=== PATIENT | female | born 1940 ===

== ENCOUNTER 2023-07-18 00:32 | Emergency (ER) | payer MEDICARE, SELFPAY ==
[2023-07-18] VITALS (15 sets, daily range): BP systolic 109–143; BP diastolic 56–73; PULSE 86–101; RESP 18–24; TEMP 36.4; O2SAT 93–95; BMI 23.1
--- NOTE | 2023-07-18 00:38 | DI.RAD.S_ITS ---
PROCEDURE: XR CHEST 1V INDICATIONS: L CHEST PAIN TECHNIQUE: One view of the chest was acquired. COMPARISON: [facility], CR, XR CHEST 1 VIEW, 07/16/2022, 9:20. [facility], CT, CT CHEST WITH CONTRAST, 10/08/2022, 14:31. FINDINGS: Surgical changes and devices: A pacer device is seen. The leads are seen in stable positions. A percutaneously placed aortic valve replacement can be seen. Rim calcified mammoplasty implants can be seen. Lungs and pleura: An incomplete inspiratory result is noted, causing a crowded appearance to the lung markings. No focal infiltrates are seen. No pneumothorax or significant pleural effusions are seen. There is elevation of the right hemidiaphragm, which is stable. Mediastinum: Mediastinal contours appear normal. Heart size is normal. Atherosclerotic calcification of the aortic arch is noted. Bones and chest wall: No suspicious bony lesions. Age-appropriate bony degenerative changes are seen. Overlying soft tissues appear unremarkable. IMPRESSION: No tyron acute abnormality is seen. Low lung volumes can be seen, with persistent elevation of the right hemidiaphragm. Postoperative and degenerative changes are seen. Dictated by: Ari Whalen M.D. on 07/18/2023 at 0:09 Approved by: Ari Whalen M.D. on 07/18/2023 at 0:11
[2023-07-18 00:48] LABS: Add Manual Diff / Slide Review NO; Basophils Absolute Auto 100 /uL (0-100); Basophils Percent Auto 1.2 % (0-2); Eosinophils Absolute Auto 300 /uL (0-450); Eosinophils Percent Auto 2.6 % (2-4); Hematocrit 39.8 % (36-46); Hemoglobin 12.9 g/dL (12.0-16.0); Lymphocytes Absolute Auto 3200 /uL (1100-4500); Lymphocytes Percent Auto 25.4 % (25-40); Mean Corpuscular HGB Conc 32.5 % (30-36); Mean Corpuscular Hemoglobin 28.1 PG (26-34); Mean Corpuscular Volume 86.6 fL (80-100); Monocytes Absolute Auto 700 /uL (0-900); Monocytes Percent Auto 5.4 % (3-14); Neutrophils Absolute Auto 8300 /uL (1500-7000); Neutrophils Percent Auto 65.4 % (50-75); Platelet Count 301 X10^3/uL (150-400); Red Blood Cell Count 4.59 X10^6/uL (4.0-5.2); Red Cell Distribution Width 14.5 % (11.6-14.8); White Blood Cell Count 12.7 X10^3/uL (4.5-11.0)
[2023-07-18 00:51] LABS: INR 1.1 (0.9-1.3); Prothrombin Time 12.2 SECONDS (9.4-12.5)
--- NOTE | 2023-07-18 00:51 | ED.CHESTPAIN ---
HPI - Chest Pain General Chief Complaint: Chest Pain Stated Complaint: chest pain Time Seen by Provider: 07/18/23 00:33 Source: patient and EMS Mode of arrival: EMS Limitations: no limitations History of Present Illness HPI narrative: 83-year-old female with history of mild dementia presents from [facility] for chest pain. Patient states that she thinks that she woke up with the pain. It was left-sided, she can not characterize the pain. Can not identify if anything makes it better or worse. Patient given aspirin by paramedics Related Data Allergies Allergy/AdvReac Type Severity Reaction Status Date / Time Penicillins Allergy Verified 07/18/23 00:38 Review of Systems Review of Systems Narrative: Negative except as noted above Patient History Social History Smoking Status: Never smoker Smoking Status: Never smoker alcohol intake frequency: other Substance Use Type: does not use Exam Initial Vital Signs Initial Vital Signs: Vital Signs Respiratory Rate 22 07/18/23 00:37 Pulse Oximetry 94 07/18/23 00:37 Oxygen Delivery Method Room Air 07/18/23 00:37 Const: Awake, alert, debilitated, frail, no acute distress Cardiac: regular rate, regular rhythm RESP: unlabored, clear bilaterally, no wheezing GI: Soft, nontender, nondistended Skin: Warm, Dry, intact, no rashes Neuro: AO x2, CN II-XII grossly intact, moves all extremities Course Orders Ordered: ED Orders 07/18/23 00:31 BNP [NT-proBNP (BNP-Adult 18+)] Stat CBC Auto Diff [Complete Blood Count AUTO DIFF] Stat CMP [Comprehensive Metabolic Panel] Stat MAG [Magnesium] Stat PT [Prothrombin Time INR] Stat Troponin & CK Cardiac Panel Stat 07/18/23 00:38 Chest [XR chest 1V] Stat EKG-12 Lead Stat 07/18/23 02:31 Trop I [Troponin I] Stat Vital Signs Vital signs: Vital Signs - 8 hr 07/18/23 00:37 07/18/23 00:39 07/18/23 01:00 Temperature 97.5 F L Pulse Rate 101 H 100 H Respiratory Rate 22 18 22 Blood Pressure 118/65 Pulse Oximetry 94 93 93 Oxygen Delivery Method Room Air Room Air Room Air 07/18/23 01:00 07/18/23 01:30 07/18/23 01:30 Temperature Pulse Rate 96 H Respiratory Rate 22 Blood Pressure 109/61 115/59 L Pulse Oximetry 93 Oxygen Delivery Method Room Air 07/18/23 02:00 07/18/23 02:00 07/18/23 02:30 Temperature Pulse Rate 92 H 92 H Respiratory Rate 21 24 Blood Pressure 118/58 L Pulse Oximetry 93 93 Oxygen Delivery Method Room Air Room Air 07/18/23 02:30 Temperature Pulse Rate Respiratory Rate Blood Pressure 128/67 Pulse Oximetry Oxygen Delivery Method MDM - Chest Pain Differential Diagnosis Differential diagnosis: Likely fracture of rib, pneumothorax and stable angina Lab Data 07/18/23 00:31 07/18/23 00:31 Labs: Lab Results 07/18/23 07/18/23 Range/Units 00:31 02:31 WBC 12.7 H (4.5-11.0) X10^3/uL RBC 4.59 (4.0-5.2) X10^6/uL Hgb 12.9 (12.0-16.0) g/dL Hct 39.8 (36-46) % MCV 86.6 (80-100) fL MCH 28.1 (26-34) PG MCHC 32.5 (30-36) % RDW 14.5 (11.6-14.8) % Plt Count 301 (150-400) X10^3/uL Neut % (Auto) 65.4 (50-75) % Lymph % (Auto) 25.4 (25-40) % [place] % (Auto) 5.4 (3-14) % Eos % (Auto) 2.6 (2-4) % Baso % (Auto) 1.2 (0-2) % Neut # (Auto) 8300 H (6335-8845) /uL Lymph # (Auto) 3200 (3555-3004) /uL [place] # (Auto) 700 (0-900) /uL Eos # (Auto) 300 (0-450) /uL Baso # (Auto) 100 (0-100) /uL PT 12.2 (9.4-12.5) SECONDS INR 1.1 (0.9-1.3) Sodium 139 (137-145) mmol/L Potassium 4.2 (3.4-5.1) mmol/L Chloride 105 (98-107) mmol/L Carbon Dioxide 28 (22-32) mmol/L BUN 30 H (7-17) mg/dL Creatinine 0.85 (0.52-1.04) mg/dL Estimated GFR > 60 (>60) mL/min BUN/Creatinine Ratio 35.3 H (6-22) Glucose 119 H (80-110) mg/dL Calcium 9.5 (8.4-10.2) mg/dL Magnesium 1.7 (1.6-2.3) mg/dL Total Bilirubin 0.5 (0.2-1.3) mg/dL AST 24 (14-36) IU/L ALT 13 (<35) IU/L Alkaline Phosphatase 127 H (38-126) U/L Total Creatine Kinase 40 (30-135) U/L Troponin I < 0.012 < 0.012 (0.01-0.034) ng/mL NT-Pro-B Natriuret Pep 584 H (<450) pg/mL Total Protein 7.5 (6.3-8.2) g/dL Albumin 4.0 (3.5-5.0) g/dL Globulin 3.5 (1.7-4.1) g/dL Albumin/Globulin Ratio 1.1 (1.0-2.8) Imaging Data Chest x-ray: Radiologist's Impression: PROCEDURE: XR CHEST 1V INDICATIONS: L CHEST PAIN TECHNIQUE: One view of the chest was acquired. COMPARISON: [facility], CR, XR CHEST 1 VIEW, 07/16/2022, 9:20. [facility], CT, CT CHEST WITH CONTRAST, 10/08/2022, 14:31. FINDINGS: Surgical changes and devices: A pacer device is seen. The leads are seen in stable positions. A percutaneously placed aortic valve replacement can be seen. Rim calcified mammoplasty implants can be seen. Lungs and pleura: An incomplete inspiratory result is noted, causing a crowded appearance to the lung markings. No focal infiltrates are seen. No pneumothorax or significant pleural effusions are seen. There is elevation of the right hemidiaphragm, which is stable. Mediastinum: Mediastinal contours appear normal. Heart size is normal. Atherosclerotic calcification of the aortic arch is noted. Bones and chest wall: No suspicious bony lesions. Age-appropriate bony degenerative changes are seen. Overlying soft tissues appear unremarkable. IMPRESSION: No tyron acute abnormality is seen. Low lung volumes can be seen, with persistent elevation of the right hemidiaphragm. Postoperative and degenerative changes are seen. Dictated by: Ari Whalen M.D. on 07/18/2023 at 0:09 Approved by: Ari Whalen M.D. on 07/18/2023 at 0:11 MDM Narrative Medical decision making narrative: Chest pain of uncertain chronicity. Patient is somewhat poor historian. She was in no acute distress but is very anxious about what could be causing her chest pain. EKG is normal sinus rhythm without obvious concerning ischemic findings. Laboratory work is reviewed, no significant acute abnormalities. Troponins are undetectable x2, electrolytes are within normal limits, normal hemoglobin. Patient counseled on her lab and imaging findings, uncertain cause of pain but unlikely to be ACS at this time. Patient counseled to follow up with primary care physician and Cardiology if she continues to experience pain. Cardiology referral provided. Discharge Plan Departure Patient Disposition: Home Clinical Impression: Chest pain Instructions: DI for Chest Pain Activity Restrictions/Additional Instructions: Your EKG and lab work was normal today. I do not know the cause of your chest pain. Please follow up with your primary care physician and a university controller. Referrals: Tiffany Stoner DO [Physician] - Stand Alone Forms: Patient Portal/API
[2023-07-18 00:56] LABS: Alanine Aminotransferase 13 IU/L (<35); Albumin Globulin Ratio 1.1 (1.0-2.8); Alkaline Phosphatase 127 U/L (38-126); Aspartate Aminotransferase 24 IU/L (14-36); BUN Creatinine Ratio 35.3 (6-22); Bilirubin Total 0.5 mg/dL (0.2-1.3); Blood Urea Nitrogen 30 mg/dL (7-17); Calcium 9.5 mg/dL (8.4-10.2); Carbon Dioxide 28 mmol/L (22-32); Chloride 105 mmol/L (98-107); Creatine Kinase 40 U/L (30-135); Estimated Glomerular Filt Rate > 60 mL/min (>60); Globulin 3.5 g/dL (1.7-4.1); Glucose 119 mg/dL (80-110); HEMOLYSIS 16 (0-50); Magnesium 1.7 mg/dL (1.6-2.3); Potassium 4.2 mmol/L (3.4-5.1); Sodium 139 mmol/L (137-145); Total Protein 7.5 g/dL (6.3-8.2)
[2023-07-18 01:08] LABS: NT-proBNP (BNP-Adult 18+) 584 pg/mL (<450); Troponin I < 0.012 ng/mL (0.01-0.034)
--- NOTE | 2023-07-18 01:30 | PC.NURSE ---
Pt is oriented to location but does not remember that she is at a short term facility at this point. But was able to tell me upon arrival. Pt is often forgetful and asks the same questions that have been answered prior.
[2023-07-18 03:07] LABS: Troponin I < 0.012 ng/mL (0.01-0.034)
--- NOTE | 2023-07-18 04:06 | PC.NURSE ---
Pt is a resident of [facility]. I asked the pt if she had any way home back to the facility and she told me that she doesn't and that she is unable to ambulate well. FERNANDO Mortensen told me to contact [facility] to schedule and transport back to her facility. After facilitating the transport setup, I notified the pt and gave her an update on when they would be here to pickup and take her back. After updating the pt, I tried to call her facility at [phone] to give them an ETA on when their resident will be arriving back and got no answer and no way for me to leave a voicemail. I tried again several more times to make contact with the facility and still received no answer. FERNANDO Mortensen notified.
--- NOTE | 2023-07-18 06:29 | PC.NURSE ---
Richard called to inquire on the pt. They were informed of discharge status and results. Verbalized understanding.
== END 2023-07-18 06:50 | disposition home or self-care (01) ==
PROVIDERS: Emergency Provider Emergency Medicine
DX: R07.9 Chest pain, unspecified (principal)
CPT/HCPCS: 36415; 71045; 80053; 82550; 83735; 83880; 84484; 85025; 85610; 93005; 99283; 99284

== ENCOUNTER 2023-08-20 14:02 | Emergency (ER) | payer MEDICARE, MEDICAID, SELFPAY ==
[2023-08-20] VITALS (11 sets, daily range): BP systolic 163–190; BP diastolic 77–92; PULSE 93–103; RESP 15–22; TEMP 36.8; O2SAT 94–96
--- NOTE | 2023-08-20 14:10 | DI.RAD.S_ITS ---
PROCEDURE: XR CHEST 1V INDICATIONS: htn, sob earlier TECHNIQUE: One view of the chest was acquired. COMPARISON: [facility], CR, XR CHEST 1V, 07/18/2023, 0:49. FINDINGS: Surgical changes and devices: Pacemaker. Aortic valve replacement. Lungs and pleura: Limited exam secondary to hypoinflation and poor inspiratory effort. Lungs are clear. No pleural effusions or pneumothorax. Mediastinum: Mediastinal contours appear normal. Heart size is normal. Bones and chest wall: No suspicious bony lesions. Overlying soft tissues appear unremarkable. IMPRESSION: No acute pulmonary process. Dictated by: Shonna Otero M.D. on 08/20/2023 at 14:36 Approved by: Shonna Otero M.D. on 08/20/2023 at 14:37
--- NOTE | 2023-08-20 14:14 | ED.GENADULT ---
HPI - General Adult General Chief complaint: Hypertension Stated complaint: HTN Time Seen by Provider: 08/20/23 14:10 Source: patient, RN notes reviewed and old records reviewed Mode of arrival: EMS Limitations: no limitations History of Present Illness HPI narrative: 83-year-old female with history of mild dementia, hypertension, chronic kidney disease stage 3, dyslipidemia, GERD, chronic anemia who is not on any anticoagulation presents for elevated blood pressure. Patient had blood pressures in the 200 range at her facility on 2 separate occasions. She was sent with a list of what looks like she typically runs in the 150 range on average. Patient does not appear to be on any blood pressure medications although she has hypertension listed under her formal diagnoses. Patient states she felt a little short of breath earlier today but states that has not uncommon. She has had a mild headache, she denies any chest pain or pressure, no nausea or vomiting. She has had little bit of diarrhea she states no black or blood stools. It has been liquidy and loose a few times daily. She denies any new urinary symptoms but does have an indwelling Bernal catheter. She states she has been told she needs to drink more fluids cause her urine has been yellow. Patient states she just does not like to drink fluids a lot. She denies any other symptoms currently. She states she feels well currently. Blood pressure upon arrival was 160s with EMS. She is full code. They note her DPOA is in [place] currently. Related Data Allergies Allergy/AdvReac Type Severity Reaction Status Date / Time Penicillins Allergy Verified 08/20/23 14:11 Review of Systems Review of Systems ROS Unobtainable: All systems reviewed & are unremarkable except as noted in HPI and below Patient History Social History Smoking Status: Never smoker Smoking Status: Never smoker alcohol intake frequency: other Substance Use Type: does not use Exam Narrative Exam Narrative: GEN: well nourished, well appearing female, alert and oriented, patient appears to be in mild distress. HEENT: Atraumatic, pupils are equal round reactive to light, extraocular movements are intact, nares are clear, there is no conjunctival pallor. Throat is clear without any exudates, erythema, tonsillar enlargement or uvular deviation, no facial droop HEART: Regular rate and rhythm without murmur, clicks, rubs. Pulses are equal in upper and lower extremities LUNGS:Lungs clear to auscultation, no wheezes, rales, crackles, chest moves symmetrically, no tachypnea or accessory muscle use ABD:bowel sounds normal, soft, non-tender, no guarding, rebound, rigidity, no masses noted, no hepatosplenomegaly :No CVA tenderness, denies Bernal catheter in place draining yellow urine. MSCL: Non-tender, no muscle atrophy, muscles strength 5/5 upper and lower extremities, full range of motion NEURO:CN 2-12 intact, sensation normal Initial Vital Signs Initial Vital Signs: Vital Signs Temperature 98.2 F 08/20/23 14:00 Pulse Rate 103 H 08/20/23 14:00 Respiratory Rate 15 08/20/23 14:00 Blood Pressure 175/92 H 08/20/23 14:00 Pulse Oximetry 95 08/20/23 14:00 Oxygen Delivery Method Room Air 08/20/23 14:00 Course Orders Ordered: ED Orders 08/20/23 14:10 XR chest 1V Stat EKG-12 Lead Stat 08/20/23 14:22 Complete Blood Count AUTO DIFF Stat Comprehensive Metabolic Panel Stat Lipase Stat NT-proBNP (BNP-Adult 18+) Stat PTT Partial Thromboplastin Jimenez Stat Prothrombin Time INR Stat Troponin & CK Cardiac Panel Stat Sodium Chloride (Normal Saline 0.9%) 1,000 mls @ 150 mls/hr IV CONT SARAHI Last Infusion: 08/20/23 18:17 Dose: Infused Documented By: Admin: 08/20/23 14:33 Dose: 150 mls/hr Documented By: LINCOLN Discontinued Medications Acetaminophen (Acetaminophen 325 Mg Tablet) 650 mg PO NOW ONE Stop: 08/20/23 14:12 Last Admin: 08/20/23 14:33 Dose: 650 mg Documented By: LINCOLN Aspirin (Aspirin 81 Mg Chew Tab) 324 mg PO NOW ONE Stop: 08/20/23 14:11 Last Admin: 08/20/23 14:32 Dose: 324 mg Documented By: LINCOLN Vital Signs Vital signs: Vital Signs - 8 hr 08/20/23 14:00 08/20/23 14:05 08/20/23 14:06 Temperature 98.2 F Pulse Rate 103 H 103 H Respiratory Rate 15 Blood Pressure 175/92 H 175/92 H Pulse Oximetry 95 94 Oxygen Delivery Method Room Air 08/20/23 14:30 08/20/23 14:30 08/20/23 15:00 Temperature Pulse Rate 96 H Respiratory Rate 20 Blood Pressure 163/77 H 172/83 H Pulse Oximetry 94 Oxygen Delivery Method 08/20/23 15:00 08/20/23 15:30 08/20/23 15:30 Temperature Pulse Rate 94 H 93 H Respiratory Rate 21 20 Blood Pressure 179/82 H Pulse Oximetry 95 96 Oxygen Delivery Method 08/20/23 16:00 08/20/23 16:00 08/20/23 16:30 Temperature Pulse Rate 93 H 95 H Respiratory Rate 21 22 Blood Pressure 175/85 H Pulse Oximetry 96 96 Oxygen Delivery Method Room Air Room Air 08/20/23 16:30 08/20/23 17:00 08/20/23 17:00 Temperature Pulse Rate 101 H Respiratory Rate 21 Blood Pressure 186/88 H 188/88 H Pulse Oximetry 96 Oxygen Delivery Method 08/20/23 17:30 08/20/23 17:30 08/20/23 18:00 Temperature Pulse Rate 96 H Respiratory Rate 22 Blood Pressure 190/91 H 188/84 H Pulse Oximetry 96 Oxygen Delivery Method 08/20/23 18:00 Temperature Pulse Rate 97 H Respiratory Rate 21 Blood Pressure Pulse Oximetry 94 Oxygen Delivery Method Room Air Medical Decision Making Lab Data 08/20/23 14:22 08/20/23 14:22 Labs: Lab Results 08/20/23 Range/Units 14:22 WBC 11.6 H (4.5-11.0) X10^3/uL RBC 4.41 (4.0-5.2) X10^6/uL Hgb 12.6 (12.0-16.0) g/dL Hct 38.8 (36-46) % MCV 88.0 (80-100) fL MCH 28.7 (26-34) PG MCHC 32.6 (30-36) % RDW 15.4 H (11.6-14.8) % Plt Count 260 (150-400) X10^3/uL Neut % (Auto) 68.2 (50-75) % Lymph % (Auto) 22.5 L (25-40) % [place] % (Auto) 6.0 (3-14) % Eos % (Auto) 2.6 (2-4) % Baso % (Auto) 0.7 (0-2) % Neut # (Auto) 7900 H (6909-5822) /uL Lymph # (Auto) 2600 (4704-0029) /uL [place] # (Auto) 700 (0-900) /uL Eos # (Auto) 300 (0-450) /uL Baso # (Auto) 100 (0-100) /uL PT 11.8 (9.4-12.5) SECONDS INR 1.0 (0.9-1.3) APTT 37 H (25.1-36.5) SECONDS Sodium 141 (137-145) mmol/L Potassium 4.6 (3.4-5.1) mmol/L Chloride 107 (98-107) mmol/L Carbon Dioxide 28 (22-32) mmol/L BUN 19 H (7-17) mg/dL Creatinine 0.84 (0.52-1.04) mg/dL Estimated GFR > 60 (>60) mL/min BUN/Creatinine Ratio 22.6 H (6-22) Glucose 94 (80-110) mg/dL Calcium 9.2 (8.4-10.2) mg/dL Total Bilirubin 0.5 (0.2-1.3) mg/dL AST 25 (14-36) IU/L ALT 11 (<35) IU/L Alkaline Phosphatase 134 H (38-126) U/L Total Creatine Kinase 40 (30-135) U/L Troponin I < 0.012 (0.01-0.034) ng/mL NT-Pro-B Natriuret Pep 570 H (<450) pg/mL Total Protein 7.7 (6.3-8.2) g/dL Albumin 4.3 (3.5-5.0) g/dL Globulin 3.4 (1.7-4.1) g/dL Albumin/Globulin Ratio 1.3 (1.0-2.8) Lipase 103 (23-300) U/L Imaging Data Chest x-ray: Radiologist's Impression: Sylvie Joy??83??F??1940 ? Allergy/Adv: Penicillins Close Chest X-Ray (Signed) Shonna Otero - 08/20/23 Chest X-Ray (Signed) Ari Whalen - 07/18/23 [facility]?Image [address] [address] XRay Report Signed Patient: Sylvie Joy MR#: [id number] : 1940 Acct:[id number] Age/Sex: 83 / F Date of Service: 08/20/23 Loc: ED Accession Number: [id number] Procedure: XR chest 1V Ordering Provider: Ava Salazar D.O. PROCEDURE: XR CHEST 1V INDICATIONS: htn, sob earlier TECHNIQUE: One view of the chest was acquired. COMPARISON: Located [facility], , XR CHEST 1V, 07/18/2023, 0:49. FINDINGS: Surgical changes and devices: Pacemaker. Aortic valve replacement. Lungs and pleura: Limited exam secondary to hypoinflation and poor inspiratory effort. Lungs are clear. No pleural effusions or pneumothorax. Mediastinum: Mediastinal contours appear normal. Heart size is normal. Bones and chest wall: No suspicious bony lesions. Overlying soft tissues appear unremarkable. IMPRESSION: No acute pulmonary process. Dictated by: Shonna Otero M.D. on 08/20/2023 at 14:36 Approved by: Shonna Otero M.D. on 08/20/2023 at 14:37 ECG Data Attestation: I personally reviewed and interpreted this ECG as follows: Interpretation: Atrial sensed ventricular paced rhythm rate of 95 IN 220 QRS of 144, QTC 527. MDM Narrative Medical decision making narrative: Patient is sent to the emergency department for current for for hypertension patient states she felt a little short of breath earlier today but not currently. She would manual blood pressures in the 201 90 x 2. Patient does not appear to be on any antihypertensives does have it listed on her diagnosis list. Patient did request something for chronic hip pain she states she takes medication regularly she does not know the name of it appears that she takes ibuprofen and/or Tylenol for pain. Was given a dose here. Labs white count of 11.6 hemoglobin of 12 platelets of 260. INR of 1 sodium 141 potassium 4 6 chloride 107 CO2 of 28 BUN 19 creatinine 0.84, glucose 94, troponins negative, BNP is 570, otherwise normal LFTs. EKG shows paced rhythm. Chest x-ray shows no acute change. Blood pressure in the department paced rhythm. It has not totally normalized but has trended down over time. Patient's blood pressure is elevated compared to prior visits but she is otherwise asymptomatic. Patient does not wish to start any medication at this time she is happy to follow with her physician in the facility and they can start medicine if she continually is elevated. She otherwise appears safe for discharge and patient desires discharge back to her facility. Discharge Plan Departure Patient Disposition: Home Clinical Impression: Hypertension Activity Restrictions/Additional Instructions: Follow up with your physician for recheck of your blood pressure if it is persistently elevated you should be started on medication. You do have a diagnosis of hypertension on your list from your facility but are not on any current blood pressure medications according to that list. Continue your other medications as prescribed. Please return for severe headaches, new chest pain increased shortness of breath, persistent vomiting, lightheadedness or passing out or other new or concerning changes. Referrals: Miscellaneous,Doctor, MD [Primary Care Provider] - Stand Alone Forms: Patient Portal/API
[2023-08-20 14:30] LABS: Add Manual Diff / Slide Review NO; Basophils Absolute Auto 100 /uL (0-100); Basophils Percent Auto 0.7 % (0-2); Eosinophils Absolute Auto 300 /uL (0-450); Eosinophils Percent Auto 2.6 % (2-4); Hematocrit 38.8 % (36-46); Hemoglobin 12.6 g/dL (12.0-16.0); Lymphocytes Absolute Auto 2600 /uL (1100-4500); Lymphocytes Percent Auto 22.5 % (25-40); Mean Corpuscular HGB Conc 32.6 % (30-36); Mean Corpuscular Hemoglobin 28.7 PG (26-34); Monocytes Absolute Auto 700 /uL (0-900); Neutrophils Absolute Auto 7900 /uL (1500-7000); Neutrophils Percent Auto 68.2 % (50-75); Platelet Count 260 X10^3/uL (150-400); Red Blood Cell Count 4.41 X10^6/uL (4.0-5.2); Red Cell Distribution Width 15.4 % (11.6-14.8); White Blood Cell Count 11.6 X10^3/uL (4.5-11.0)
[2023-08-20] MEDS: ASPIRIN 81 MG CHEW TAB 324 MG PO (14:32)
[2023-08-20] MEDS: SODIUM CHLORIDE 0.9% 1,000 ML 150 ML IV (14:33)
[2023-08-20] MEDS: ACETAMINOPHEN 325 MG TABLET 650 MG PO (14:33)
[2023-08-20 14:39] LABS: Prothrombin Time 11.8 SECONDS (9.4-12.5)
[2023-08-20 14:41] LABS: PTT Partial Thromboplastin Tim 37 SECONDS (25.1-36.5)
[2023-08-20 14:42] LABS: Alanine Aminotransferase 11 IU/L (<35); Albumin 4.3 g/dL (3.5-5.0); Albumin Globulin Ratio 1.3 (1.0-2.8); Alkaline Phosphatase 134 U/L (38-126); Aspartate Aminotransferase 25 IU/L (14-36); BUN Creatinine Ratio 22.6 (6-22); Bilirubin Total 0.5 mg/dL (0.2-1.3); Blood Urea Nitrogen 19 mg/dL (7-17); Calcium 9.2 mg/dL (8.4-10.2); Carbon Dioxide 28 mmol/L (22-32); Chloride 107 mmol/L (98-107); Creatine Kinase 40 U/L (30-135); Estimated Glomerular Filt Rate > 60 mL/min (>60); Globulin 3.4 g/dL (1.7-4.1); Glucose 94 mg/dL (80-110); HEMOLYSIS < 15 (0-50); Lipase 103 U/L (23-300); Potassium 4.6 mmol/L (3.4-5.1); Sodium 141 mmol/L (137-145); Total Protein 7.7 g/dL (6.3-8.2)
[2023-08-20 14:53] LABS: NT-proBNP (BNP-Adult 18+) 570 pg/mL (<450); Troponin I < 0.012 ng/mL (0.01-0.034)
--- NOTE | 2023-08-20 17:15 | PC.NURSE ---
The patient is wanting to leave. MD aware and assessed the patient and discharged her with instructions to monitor her BP and consult her provider for medication if her pressure continues to be high. The patient stated that she's always had high blood pressure and that's just who she is.
--- NOTE | 2023-08-20 17:28 | PC.NURSE ---
Attempted to call [facility] as pt is being discharged to return to facility. Left message.
--- NOTE | 2023-08-20 17:41 | PC.NURSE ---
This GOVERNMENT SALES MANAGER attempted to contact at [address] [facility] to arrange a ride home and was unable to get ahold of anyone. Attempted contacting the nursing staff and also residential driver.
== END 2023-08-20 19:44 | disposition home or self-care (01) ==
PROVIDERS: Emergency Provider Emergency Medicine
DX: I10 Essential (primary) hypertension (principal); R06.02 Shortness of breath
CPT/HCPCS: 36415; 71045; 80053; 82550; 83690; 83880; 84484; 85025; 85610; 85730; 93005; 93010; 96360; 96361; 99284

== ENCOUNTER 2023-08-28 03:53 | Emergency (ER) | payer MEDICARE, SELFPAY ==
[2023-08-28] VITALS (19 sets, daily range): BP systolic 166–191; BP diastolic 76–92; PULSE 73–95; RESP 17–21; TEMP 36.1; O2SAT 92–98; BMI 28.0
--- NOTE | 2023-08-28 04:05 | DI.RAD.S_ITS ---
PROCEDURE: XR CHEST 1V INDICATIONS: chest pain TECHNIQUE: One view of the chest was acquired. COMPARISON: [facility], CR, XR CHEST 1V, 08/20/2023, 14:15. FINDINGS: Surgical changes and devices: Status post cardiac valve replacement. Left cardiac pacemaker. Bilateral breast implants are noted. 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 Lungs are otherwise clear. No pleural effusions or pneumothorax. Mediastinum: Mediastinal contours appear normal. Heart size is normal. Bones and chest wall: No suspicious bony lesions. Overlying soft tissues appear unremarkable. IMPRESSION: Stable radiographic evaluation of the chest without acute cardiopulmonary abnormalities or focal airspace disease. No significant discrepancy with the director peoplesoft radiology preliminary report. Dictated by: Anatoliy Ayala M.D. on 08/28/2023 at 9:38 Approved by: Anatoliy Ayala M.D. on 08/28/2023 at 9:40
--- NOTE | 2023-08-28 04:28 | ED_ITS ---
HPI - Chest Pain <Akhil Ag MD - Last Filed: 08/28/23 16:30> General Chief Complaint: Chest Pain Stated Complaint: chest pain Time Seen by Provider: 08/28/23 04:18 Source: patient and EMS Mode of arrival: EMS History of Present Illness HPI narrative: 83-year-old female complains of left lateral chest pain that is resolved. She resides at [facility], complains of shortness of breath through the day yesterday, approximately 1:00 a.m. today had left lateral chest discomfort. Not particularly sharp, not particularly dull or aching, nonradiating, not worse with arm movements or truncal movements. She was not given any oral or topical or other medications. No associated nausea or diaphoresis. She does not believe she has had any coronary vessel stented, no bypass surgery. No syncope or presyncope only associated symptoms. No fevers chills or cough. No nausea or vomiting, no diarrhea, no black or red stools. Symptoms seemed to be resolved during short transport EMS, she has not aware being given any particular medications IV or orally or sublingually. Related Data Allergies Allergy/AdvReac Type Severity Reaction Status Date / Time Penicillins Allergy Verified 08/20/23 14:11 Patient History <Akhil Ag MD - Last Filed: 08/28/23 16:30> Social History Smoking Status: Never smoker Smoking Status: Never smoker alcohol intake frequency: other Substance Use Type: does not use Exam <Akhil Ag MD - Last Filed: 08/28/23 16:30> Narrative Exam Narrative: GENERAL: Well-developed patient, in mild distress. HEAD: Atraumatic. Normocephalic. EYES: Pupils equal round and reactive. Extraocular motions intact. No scleral icterus. No injection or drainage. ENT: Nose without bleeding, purulent drainage. Throat without erythema, tonsillar hypertrophy or exudate. Airway patent. NECK: Trachea midline. Non tender CARDIOVASCULAR: Regular rate and rhythm without murmurs, gallops, or rubs. RESPIRATORY: Clear to auscultation. Breath sounds equal bilaterally. No wheezes, rales, or rhonchi. No tenderness on exam laterally or anteriorly or parasternally. No retractions, no respiratory distress. No skin changes or rash redness changes. GASTROINTESTINAL: Abdomen soft, non-tender, nondistended. EXTREMITIES: No edema or joint tenderness. BACK: Nontender without deformity or crepitance. No flank tenderness. NEURO: AOx3. SKIN: No rash or erythema of visible areas Initial Vital Signs Initial Vital Signs: Vital Signs Pulse Rate 94 H 08/28/23 03:56 Pulse Oximetry 93 08/28/23 03:56 <Elizabeth Zavala DO - Last Filed: 08/28/23 10:51> Initial Vital Signs Initial Vital Signs: Vital Signs Pulse Rate 94 H 08/28/23 03:56 Pulse Oximetry 93 08/28/23 03:56 Course <Akhil Ag MD - Last Filed: 08/28/23 16:30> Orders Ordered: Discontinued Medications Aspirin (Aspirin 81 Mg Chew Tab) 324 mg PO NOW ONE Stop: 08/28/23 04:06 Last Admin: 08/28/23 06:42 Dose: Not Given Documented By: VICTOR HUGO Vital Signs Vital signs: Vital Signs - 8 hr 08/28/23 08:30 08/28/23 08:30 08/28/23 09:00 Pulse Rate 80 Respiratory Rate 20 Blood Pressure 176/78 H 191/85 H Pulse Oximetry 93 Oxygen Delivery Method 08/28/23 09:00 08/28/23 09:30 08/28/23 09:30 Pulse Rate 93 H 89 Respiratory Rate 21 21 Blood Pressure 170/83 H Pulse Oximetry 94 94 Oxygen Delivery Method 08/28/23 09:56 08/28/23 09:56 08/28/23 10:01 Pulse Rate 95 H 92 H Respiratory Rate 19 21 Blood Pressure 179/92 H 179/92 H Pulse Oximetry 94 98 Oxygen Delivery Method Room Air <Elizabeth Zavala DO - Last Filed: 08/28/23 10:51> Orders Ordered: Discontinued Medications Aspirin (Aspirin 81 Mg Chew Tab) 324 mg PO NOW ONE Stop: 08/28/23 04:06 Last Admin: 08/28/23 06:42 Dose: Not Given Documented By: VICTOR HUGO Vital Signs Vital signs: Vital Signs - 8 hr 08/28/23 08:30 08/28/23 08:30 08/28/23 09:00 Pulse Rate 80 Respiratory Rate 20 Blood Pressure 176/78 H 191/85 H Pulse Oximetry 93 Oxygen Delivery Method 08/28/23 09:00 08/28/23 09:30 08/28/23 09:30 Pulse Rate 93 H 89 Respiratory Rate 21 21 Blood Pressure 170/83 H Pulse Oximetry 94 94 Oxygen Delivery Method 08/28/23 09:56 08/28/23 09:56 08/28/23 10:01 Pulse Rate 95 H 92 H Respiratory Rate 19 21 Blood Pressure 179/92 H 179/92 H Pulse Oximetry 94 98 Oxygen Delivery Method Room Air MDM - Chest Pain <Akhil Ag MD - Last Filed: 08/28/23 16:30> Medical Records Data Attestation: I reviewed the patient's medical records. Lab Data Attestation: I reviewed the patient's lab results. 08/28/23 03:50 08/28/23 03:50 Labs: Lab Results 08/28/23 08/28/23 Range/Units 03:50 07:14 WBC 9.8 (4.5-11.0) X10^3/uL RBC 4.16 (4.0-5.2) X10^6/uL Hgb 12.2 (12.0-16.0) g/dL Hct 36.3 (36-46) % MCV 87.2 (80-100) fL MCH 29.3 (26-34) PG MCHC 33.6 (30-36) % RDW 15.4 H (11.6-14.8) % Plt Count 247 (150-400) X10^3/uL Neut % (Auto) 62.0 (50-75) % Lymph % (Auto) 27.2 (25-40) % Centre % (Auto) 5.4 (3-14) % Eos % (Auto) 4.0 (2-4) % Baso % (Auto) 1.4 (0-2) % Neut # (Auto) 6000 (1465-4201) /uL Lymph # (Auto) 2700 (7171-3470) /uL [place] # (Auto) 500 (0-900) /uL Eos # (Auto) 400 (0-450) /uL Baso # (Auto) 100 (0-100) /uL PT 11.9 (9.4-12.5) SECONDS INR 1.0 (0.9-1.3) APTT 36 (25.1-36.5) SECONDS D-Dimer 583 H (<500) ng/ml Sodium 141 (137-145) mmol/L Potassium 4.3 (3.4-5.1) mmol/L Chloride 106 (98-107) mmol/L Carbon Dioxide 29 (22-32) mmol/L BUN 21 H (7-17) mg/dL Creatinine 0.83 (0.52-1.04) mg/dL Estimated GFR > 60 (>60) mL/min BUN/Creatinine Ratio 25.3 H (6-22) Glucose 107 (80-110) mg/dL Calcium 9.3 (8.4-10.2) mg/dL Magnesium 1.5 L (1.6-2.3) mg/dL Total Bilirubin 0.6 (0.2-1.3) mg/dL AST 21 (14-36) IU/L ALT 10 (<35) IU/L Alkaline Phosphatase 124 (38-126) U/L Total Creatine Kinase 43 (30-135) U/L Troponin I 0.014 < 0.012 (0.01-0.034) ng/mL Total Protein 7.0 (6.3-8.2) g/dL Albumin 4.0 (3.5-5.0) g/dL Globulin 3.0 (1.7-4.1) g/dL Albumin/Globulin Ratio 1.3 (1.0-2.8) Lipase 111 (23-300) U/L ECG Data Attestation: I personally reviewed and interpreted this ECG as follows: Interpretation: Atrial sensed and ventricular paced rhythm, similar appearance morphology to comparison study 08/20/2023. [facility] Narrative Medical decision making narrative: 83-year-old female with resolved chest pain, paced rhythm on EKG, initial troponin negative, CXR no acute changes, D-dimer positive, CTA chest study requested, interval troponin to be drawn as well. CTA and repeat troponin studies pending at this time. Signed out to oncoming ED physician Dr. Zavala <Elizabeth Zavala, - Last Filed: 08/28/23 10:51> Lab Data Labs: Lab Results 08/28/23 08/28/23 Range/Units 03:50 07:14 WBC 9.8 (4.5-11.0) X10^3/uL RBC 4.16 (4.0-5.2) X10^6/uL Hgb 12.2 (12.0-16.0) g/dL Hct 36.3 (36-46) % MCV 87.2 (80-100) fL MCH 29.3 (26-34) PG MCHC 33.6 (30-36) % RDW 15.4 H (11.6-14.8) % Plt Count 247 (150-400) X10^3/uL Neut % (Auto) 62.0 (50-75) % Lymph % (Auto) 27.2 (25-40) % Centre % (Auto) 5.4 (3-14) % Eos % (Auto) 4.0 (2-4) % Baso % (Auto) 1.4 (0-2) % Neut # (Auto) 6000 (7209-4732) /uL Lymph # (Auto) 2700 (4078-9137) /uL Centre # (Auto) 500 (0-900) /uL Eos # (Auto) 400 (0-450) /uL Baso # (Auto) 100 (0-100) /uL PT 11.9 (9.4-12.5) SECONDS INR 1.0 (0.9-1.3) APTT 36 (25.1-36.5) SECONDS D-Dimer 583 H (<500) ng/ml Sodium 141 (137-145) mmol/L Potassium 4.3 (3.4-5.1) mmol/L Chloride 106 (98-107) mmol/L Carbon Dioxide 29 (22-32) mmol/L BUN 21 H (7-17) mg/dL Creatinine 0.83 (0.52-1.04) mg/dL Estimated GFR > 60 (>60) mL/min BUN/Creatinine Ratio 25.3 H (6-22) Glucose 107 (80-110) mg/dL Calcium 9.3 (8.4-10.2) mg/dL Magnesium 1.5 L (1.6-2.3) mg/dL Total Bilirubin 0.6 (0.2-1.3) mg/dL AST 21 (14-36) IU/L ALT 10 (<35) IU/L Alkaline Phosphatase 124 (38-126) U/L Total Creatine Kinase 43 (30-135) U/L Troponin I 0.014 < 0.012 (0.01-0.034) ng/mL Total Protein 7.0 (6.3-8.2) g/dL Albumin 4.0 (3.5-5.0) g/dL Globulin 3.0 (1.7-4.1) g/dL Albumin/Globulin Ratio 1.3 (1.0-2.8) Lipase 111 (23-300) U/L Imaging Data CT scan - chest: Radiologist's Impression: PROCEDURE: CT ANGIO CHEST PE PROTOCOL INDICATIONS: pleuritic chest pain TECHNIQUE: After the administration of intravenous contrast, 2 mm thick sections acquired from the pulmonary apices to the posterior costophrenic angles. 3-dimensional maximum intensity projection (MIP) coronal and sagittal reformats were then acquired through the thorax. For radiation dose reduction, the following was used: automated exposure control, adjustment of mA and/or kV according to patient size. COMPARISON: Merged With [facility], CT, CT ABDOMEN PELVIS WITH CONTRAST, 09/28/2022, 0:20. Merged With [facility], CT, CT CHEST WITH CONTRAST, 10/08/2022, 14:31. [facility], CR, XR CHEST 1V, 08/28/2023, 4:07. FINDINGS: Image quality: Diagnostic. Pulmonary arteries: Pulmonary arteries are normal in size, and demonstrate no intraluminal filling defects to suggest central pulmonary embolism. Lower Neck: No enlarged lymph nodes. Thyroid: No thyroid nodules which require sonographic follow up, per consensus guidelines. Axillae: No enlarged lymph nodes. Chest Wall: Unremarkable. Bilateral breast implants without capsule calcification. Bones: Scoliosis and moderate to severe spondylitic changes.. Lungs and Pleura: There is right hemidiaphragm elevation and right basilar atelectasis. There are couple of calcified nodules in the right upper lobe, compatible with old granulomas. No pneumothorax or pleural effusions. No consolidations. Heart: Heart size is normal. There is a cardiac pacemaker. No pericardial effusion. 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 Thoracic Vessels: No aortic aneurysm. Mediastinum and Millicent: No enlarged lymph nodes. Esophagus: No wall thickening. There is a small hiatal hernia. Question concentric thickening at the GE junction. Upper Abdomen: Visualized upper abdomen solid organs and bowel loops appear normal. IMPRESSION: 1. No evidence of pulmonary embolism. 2. Right hemidiaphragm elevation and right basilar atelectasis. 3. Question concentric thickening at the GE junction. Consider esophagram or EGD for further evaluation. Dictated by: Alina Junior M.D. on 08/28/2023 at 8:16 MDM Narrative Medical decision making narrative: 83-year-old female with resolved chest pain, paced rhythm on EKG, initial troponin negative, CXR no acute changes, D-dimer positive, CTA chest study requested, interval troponin to be drawn as well. CTA and repeat troponin studies pending at this time. Signed out to oncoming ED physician Dr. Lucas Alcaraz: Patient signed out to me by Dr. Ag I have seen evaluated patient myself. She has been sleeping. She has some tender left-sided chest pain. On exam hurts to touch and move. She was complaining of some shortness of breath as well. She is 2- troponins CT angio chest does not show any sort of pulmonary embolism. There is questionable thickening of the GE junction she does not really have any sort of epigastric pain. I do not appreciate any sort of rash or shingles on the left side . Blood work has been reviewed EKGs have been reviewed paced rhythm Records have been reviewed patient has to the ED twice before once for hypertension once for chest pain back in July. She has no known coronary artery disease she is able to tell me. See a PCP listed. At this time she is resting comfortably she has in no acute respiratory distress she has not actively having chest pain. It does seem to be a bit reproducible and tender to palpation. At this time recommend follow-up may require echocardiogram. Attempted to call aileen lopez voicemail Discharge Plan Departure Patient Disposition: Home Clinical Impression: Atypical chest pain Instructions: DI for Atypical Chest Pain Activity Restrictions/Additional Instructions: *You have been diagnosed with atypical chest pain *What to do: At this time you may require echocardiogram as an outpatient blood work and CT scan today are reassuring Blood pressures to be elevated threw out her ED visits. I recommend continuing checked blood pressure 1 to 2 times daily follow-up with primary care provider. May require blood pressure medication. *Continue to take medications as directed *Follow up with your primary care provider in 2-3 days or call [phone] *Return to ER if you should have increasing chest pain shortness of breath or any new, worsening or concerning symptoms Referrals: Miscellaneous,MD Willam [Primary Care Provider] - Stand Alone Forms: Patient Portal/API
[2023-08-28 04:31] LABS: Add Manual Diff / Slide Review NO; Basophils Absolute Auto 100 /uL (0-100); Basophils Percent Auto 1.4 % (0-2); Eosinophils Absolute Auto 400 /uL (0-450); Hematocrit 36.3 % (36-46); Hemoglobin 12.2 g/dL (12.0-16.0); Lymphocytes Absolute Auto 2700 /uL (1100-4500); Lymphocytes Percent Auto 27.2 % (25-40); Mean Corpuscular HGB Conc 33.6 % (30-36); Mean Corpuscular Hemoglobin 29.3 PG (26-34); Mean Corpuscular Volume 87.2 fL (80-100); Monocytes Absolute Auto 500 /uL (0-900); Monocytes Percent Auto 5.4 % (3-14); Neutrophils Absolute Auto 6000 /uL (1500-7000); Platelet Count 247 X10^3/uL (150-400); Red Blood Cell Count 4.16 X10^6/uL (4.0-5.2); Red Cell Distribution Width 15.4 % (11.6-14.8); White Blood Cell Count 9.8 X10^3/uL (4.5-11.0)
[2023-08-28 04:32] LABS: Prothrombin Time 11.9 SECONDS (9.4-12.5)
[2023-08-28 04:35] LABS: PTT Partial Thromboplastin Tim 36 SECONDS (25.1-36.5)
[2023-08-28 04:37] LABS: Alanine Aminotransferase 10 IU/L (<35); Albumin Globulin Ratio 1.3 (1.0-2.8); Alkaline Phosphatase 124 U/L (38-126); Aspartate Aminotransferase 21 IU/L (14-36); BUN Creatinine Ratio 25.3 (6-22); Bilirubin Total 0.6 mg/dL (0.2-1.3); Blood Urea Nitrogen 21 mg/dL (7-17); Calcium 9.3 mg/dL (8.4-10.2); Carbon Dioxide 29 mmol/L (22-32); Chloride 106 mmol/L (98-107); Creatine Kinase 43 U/L (30-135); Estimated Glomerular Filt Rate > 60 mL/min (>60); Glucose 107 mg/dL (80-110); HEMOLYSIS < 15 (0-50); Lipase 111 U/L (23-300); Magnesium 1.5 mg/dL (1.6-2.3); Potassium 4.3 mmol/L (3.4-5.1); Sodium 141 mmol/L (137-145)
[2023-08-28 04:48] LABS: Troponin I 0.014 ng/mL (0.01-0.034)
[2023-08-28 06:53] LABS: D Dimer 583 ng/ml (<500)
--- NOTE | 2023-08-28 07:04 | DI.CT.S_ITS ---
PROCEDURE: CT ANGIO CHEST PE PROTOCOL INDICATIONS: pleuritic chest pain TECHNIQUE: After the administration of intravenous contrast, 2 mm thick sections acquired from the pulmonary apices to the posterior costophrenic angles. 3-dimensional maximum intensity projection (MIP) coronal and sagittal reformats were then acquired through the thorax. For radiation dose reduction, the following was used: automated exposure control, adjustment of mA and/or kV according to patient size. COMPARISON: Located [facility], CT, CT ABDOMEN PELVIS WITH CONTRAST, 09/28/2022, 0:20. Located Within [facility], CT, CT CHEST WITH CONTRAST, 10/08/2022, 14:31. [facility], CR, XR CHEST 1V, 08/28/2023, 4:07. FINDINGS: Image quality: Diagnostic. Pulmonary arteries: Pulmonary arteries are normal in size, and demonstrate no intraluminal filling defects to suggest central pulmonary embolism. Lower Neck: No enlarged lymph nodes. Thyroid: No thyroid nodules which require sonographic follow up, per consensus guidelines. Axillae: No enlarged lymph nodes. Chest Wall: Unremarkable. Bilateral breast implants without capsule calcification. Bones: Scoliosis and moderate to severe spondylitic changes.. Lungs and Pleura: There is right hemidiaphragm elevation and right basilar atelectasis. There are couple of calcified nodules in the right upper lobe, compatible with old granulomas. No pneumothorax or pleural effusions. No consolidations. Heart: Heart size is normal. There is a cardiac pacemaker. No pericardial effusion. 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 Thoracic Vessels: No aortic aneurysm. Mediastinum and Millicent: No enlarged lymph nodes. Esophagus: No wall thickening. There is a small hiatal hernia. Question concentric thickening at the GE junction. Upper Abdomen: Visualized upper abdomen solid organs and bowel loops appear normal. IMPRESSION: 1. No evidence of pulmonary embolism. 2. Right hemidiaphragm elevation and right basilar atelectasis. 3. Question concentric thickening at the GE junction. Consider esophagram or EGD for further evaluation. Dictated by: Alina Junior M.D. on 08/28/2023 at 8:16 Approved by: Alina Junior M.D. on 08/28/2023 at 8:24
[2023-08-28 07:44] LABS: Troponin I < 0.012 ng/mL (0.01-0.034)
== END 2023-08-28 10:05 | disposition home or self-care (01) ==
PROVIDERS: Emergency Medicine; Emergency Provider Emergency Medicine
DX: R07.89 Other chest pain (principal)
CPT/HCPCS: 71045; 71275; 80053; 82550; 83690; 83735; 84484; 85025; 85379; 85610; 85730; 93005; 93010; 99283; 99284

== ENCOUNTER → 2024-02-12 07:56 | Outpatient (ROUT) | payer MEDICARE, SELFPAY | PROVIDERS: Visit Provider Nurse Practitioner Family | DX: T14.8XXA Other injury of unspecified body region, initial encounter (principal) | CPT/HCPCS: 87070; 87075; 87077; 87147; 87186; 87205 ==

== ENCOUNTER → 2024-04-26 16:51 | Outpatient (ROUT) | payer MEDICARE, SELFPAY ==
[2024-04-26 17:14] LABS: Appearance Urine UA CLEAR; Bilirubin Urine UA NEGATIVE (NEGATIVE); Color Urine UA YELLOW; Glucose Urine UA NEGATIVE (Negative); Ketones Urine UA NEGATIVE (NEGATIVE); Leukocyte Esterase Urine UA 3+ (NEGATIVE); Nitrite Urine UA POSITIVE (Negative); Occult Blood Urine UA 2+ (Negative); Protein Urine UA TRACE (Negative); Specific Gravity Urine UA <=1.005 (1.000-1.035); Urobilinogen Urine UA 0.2 E.U./dL (0.2)
[2024-04-26 17:17] LABS: pH Urine UA 6.5 (4.5-8.0)
[2024-04-26 17:20] LABS: Bacteria Urine Few (2-10); Culture Indicated Urine Specimen Cultured; RBC Urine 0-1/HPF (0-5/HPF); Squamous Epithelial Cell Urine 0-1 /HPF (0-5/HPF); Urine Volume 10mL (spun); WBC Urine 1-5/HPF (0-5/HPF)
== END ==
PROVIDERS: Visit Provider Nurse Practitioner Family
DX: R10.30 Lower abdominal pain, unspecified (principal); R82.90 Unspecified abnormal findings in urine
CPT/HCPCS: 81001; 87086

== ENCOUNTER → 2024-06-08 08:12 | Outpatient (ROUT) | payer MEDICARE, SELFPAY ==
[2024-06-08 09:16] LABS: BUN Creatinine Ratio 14.3 (6-22); Blood Urea Nitrogen 12 mg/dL (7-17); Calcium 8.8 mg/dL (8.4-10.2); Carbon Dioxide 29 mmol/L (22-32); Chloride 103 mmol/L (98-107); Estimated Glomerular Filt Rate > 60 mL/min (>60); Glucose 87 mg/dL (80-110); HEMOLYSIS < 15 (0-50); Potassium 4.1 mmol/L (3.4-5.1); Sodium 139 mmol/L (137-145)
== END ==
PROVIDERS: Visit Provider Registered Nurse
DX: Z13.9 Encounter for screening, unspecified (principal)
CPT/HCPCS: 36415; 80048

== ENCOUNTER 2024-10-16 04:36 | Emergency (ER) | payer MEDICARE, SELFPAY ==
[2024-10-16] VITALS (15 sets, daily range): BP systolic 129–181; BP diastolic 73–96; PULSE 94–115; RESP 16–25; TEMP 36.6; O2SAT 91–96; BMI 24.4
[2024-10-16 06:49] LABS: Add Manual Diff / Slide Review NO; Hematocrit 42.0 % (36-46); Hemoglobin 13.8 g/dL (12.0-16.0); Lymphocytes Absolute Auto 1600 /uL (1100-4500); Mean Corpuscular HGB Conc 32.8 % (30-36); Mean Corpuscular Hemoglobin 29.1 PG (26-34); Mean Corpuscular Volume 88.7 fL (80-100); Platelet Count 274 X10^3/uL (150-400)
[2024-10-16 07:02] LABS: Alanine Aminotransferase 14 IU/L (<35); Albumin 3.5 g/dL (3.5-5.0); Albumin Globulin Ratio 1.0 (1.0-2.8); Alkaline Phosphatase 159 U/L (38-126); Blood Urea Nitrogen 12 mg/dL (7-17); Calcium 9.1 mg/dL (8.4-10.2); Carbon Dioxide 28 mmol/L (22-32); Chloride 102 mmol/L (98-107); Estimated Glomerular Filt Rate > 60 mL/min (>60); Globulin 3.5 g/dL (1.7-4.1); Glucose 113 mg/dL (70-99); HEMOLYSIS < 15 (0-50); Lipase 233 U/L (23-300); Potassium 4.4 mmol/L (3.4-5.1); Sodium 136 mmol/L (137-145); Total Protein 7.0 g/dL (6.3-8.2)
--- NOTE | 2024-10-16 07:22 | ED_ITS ---
HPI - Abdominal Pain General Chief Complaint: Abdominal Pain Stated Complaint: abd pain Time Seen by Provider: 10/16/24 05:58 Source: patient Mode of arrival: EMS History of Present Illness HPI narrative: 84 years old female with history of chronic right hip pain on tramadol brought in by an ambulance complaining of right lower abdominal pain, right hip pain worsening for the last 1 month after ran out of her tramadol for the last 2-3 months. She is normally bed-bound and has chronic Bernal catheter placement. She denies any changes in her urine, diarrhea, constipation, vaginal discharge, vaginal bleeding, fever, chest pain, shortness of breath, nausea vomiting, new injury. Related Data Previous Rx's ?Medication ?Instructions ?Recorded hydrocodone 2.5 mg-acetaminophen 1 tab PO TID PRN pain #10 tabs 10/16/24 325 mg tablet Allergies Allergy/AdvReac Type Severity Reaction Status Date / Time gabapentin Allergy Unknown Verified 10/16/24 04:41 hydrochlorothiazide Allergy Unknown Verified 10/16/24 04:41 indomethacin Allergy Unknown Verified 10/16/24 04:41 Penicillins Allergy Verified 10/16/24 04:41 Review of Systems Review of Systems Narrative: Positive for right lower abdominal pain, right hip pain. Negative for chest pain, shortness of breath, nausea vomiting, changes her urine pattern (chronic Bernal catheter placement), diarrhea, constipation, fever, back pain, changes of her chronic leg weakness. Patient History Social History Smoking Status: Never smoker Smoking Status: Never smoker alcohol intake frequency: other Exam Initial Vital Signs Initial Vital Signs: Vital Signs Temperature 97.8 F 10/16/24 04:41 Pulse Rate 102 H 10/16/24 04:41 Respiratory Rate 16 10/16/24 04:41 Blood Pressure 158/81 H 10/16/24 04:41 Pulse Oximetry 95 10/16/24 04:41 Oxygen Delivery Method Room Air 10/16/24 04:41 Const General: cooperative, comfortable, No acute distress, No in distress and No anxious Resp Other: Clear to auscultation bilaterally. No respiratory distress. No wheezing. Cardio Other: Normal S1-S2 without murmur. No tachycardia and regular rhythm. GI Other: Mild tenderness to palpation across the low abdomen, nontender. No guarding or rebound tenderness. Back/Spine/Pelvis Other: Bed-bound. Decreased range of motion of bilateral hip. Normal ankle flexion and extension. Neuro Other: Alert oriented x3 she is at the baseline. Moving both arms and legs. Equal sensation on both legs. Course Course Additional Information: Reviewed with her lab result including CBC, CMP, lipase showed mild alkaline phosphatase elevation without changes from her baseline. The rest of LFT was normal. No leukocytosis. Normal hemoglobin. We are waiting for CT scan abdomen pelvis. She was given oral Vicodin. Orders Ordered: Discontinued Medications Hydrocodone Bitart/Acetaminophen (Hydrocodone/Acet 5/325 Tablet) 1 tab PO NOW ONE Stop: 10/16/24 07:33 Last Admin: 10/16/24 07:55 Dose: 1 tab Documented By: Vital Signs Vital signs: Vital Signs - 8 hr 10/16/24 10:30 10/16/24 10:54 Pulse Rate 96 H 100 H Respiratory Rate 20 16 Blood Pressure 129/73 129/73 Pulse Oximetry 95 94 Oxygen Delivery Method Room Air MDM - Abdominal Pain Lab Data 10/16/24 06:41 10/16/24 06:41 Labs: Lab Results 10/16/24 Range/Units 06:41 WBC 9.9 (4.5-11.0) X10^3/uL RBC 4.73 (4.0-5.2) X10^6/uL Hgb 13.8 (12.0-16.0) g/dL Hct 42.0 (36-46) % MCV 88.7 (80-100) fL MCH 29.1 (26-34) PG MCHC 32.8 (30-36) % RDW 14.6 (11.6-14.8) % Plt Count 274 (150-400) X10^3/uL Neut % (Auto) 76.0 H (50-75) % Lymph % (Auto) 15.9 L (25-40) % [place] % (Auto) 6.1 (3-14) % Eos % (Auto) 1.3 L (2-4) % Baso % (Auto) 0.7 (0-2) % Neut # (Auto) 7500 H (6716-7679) /uL Lymph # (Auto) 1600 (1442-4169) /uL [place] # (Auto) 600 (0-900) /uL Eos # (Auto) 100 (0-450) /uL Baso # (Auto) 100 (0-100) /uL Sodium 136 L (137-145) mmol/L Potassium 4.4 (3.4-5.1) mmol/L Chloride 102 (98-107) mmol/L Carbon Dioxide 28 (22-32) mmol/L BUN 12 (7-17) mg/dL Creatinine 0.77 (0.52-1.04) mg/dL Estimated GFR > 60 (>60) mL/min BUN/Creatinine Ratio 15.6 (6-22) Glucose 113 H (70-99) mg/dL Calcium 9.1 (8.4-10.2) mg/dL Total Bilirubin 0.5 (0.2-1.3) mg/dL AST 27 (14-36) IU/L ALT 14 (<35) IU/L Alkaline Phosphatase 159 H (38-126) U/L Total Protein 7.0 (6.3-8.2) g/dL Albumin 3.5 (3.5-5.0) g/dL Globulin 3.5 (1.7-4.1) g/dL Albumin/Globulin Ratio 1.0 (1.0-2.8) Lipase 233 (23-300) U/L Imaging Data CT scan - abdomen/pelvis: Radiologist's Impression: PROCEDURE: CT ABDOMEN PELVIS W CON INDICATIONS: Right lower abdominal pain, right hip pain TECHNIQUE: After the administration of intravenous contrast, axial sections acquired from the lung bases to the pubic symphysis. Coronal and sagittal reformats were performed. For radiation dose reduction, the following was used: automated exposure control, adjustment of mA and/or kV according to patient size. COMPARISON: [facility], CT, CT ABDOMEN PELVIS WITH CONTRAST, 09/28/2022, 0:20. FINDINGS: Image quality: Diagnostic. Lower Chest: Bibasilar dependent atelectasis is seen. Bilateral breast implants are intact. Elevation of right hemidiaphragm is noted with right basilar atelectasis. Prosthetic heart valve and pacemaker leads are seen. ABDOMEN: Liver: No solid mass. Gallbladder: Gallbladder is not visualized. Biliary ducts: No biliary dilation. Pancreas: No ductal dilation. Spleen: Size is within normal limits. Adrenal Glands: No adrenal nodules. Kidneys and Ureters: No hydronephrosis. No solid mass. No complex renal cystic lesion which requires follow up. Stomach and Bowel: There is no bowel obstruction. No abnormal bowel wall thickening or mesenteric fat stranding. Appendix is not definitively identified. No focal inflammatory changes are seen in right lower quadrant abdomen. Mild colonic diverticulosis without CT evidence of acute diverticulitis. No abscess collection. Peritoneum: No abnormal intraperitoneal fluid. No free air. Ventral Wall: No significant ventral hernia. Abdominal Nodes: No retroperitoneal or mesenteric adenopathy by size criteria. Vessels: Aorta and inferior vena cava are normal in size. PELVIS: Pelvic Organs: There is prior hysterectomy. Cystic structure is seen in right adnexa measures 2.6 x 3 cm in size. Bladder: No bladder wall thickening, accounting for underdistention. Pelvic Nodes: No enlarged lymph nodes. Miscellaneous: No inguinal hernias are seen. Bones: No aggressive osseous abnormality. Prior right total hip arthroplasty is seen. No acute vertebral body compression fracture is seen. Grade 1 anterolisthesis of L3 on L4 is seen. IMPRESSION: 1. No bowel obstruction or abnormal bowel wall thickening. No free fluid or free air. No evidence of acute appendicitis or diverticulitis. 2. No obstructing renal stones or hydronephrosis. 3. Prior hysterectomy. Likely right ovarian cyst as above. 4. Other incidental findings as above. Dictated by: Santiago Nolan M.D. on 10/16/2024 at 8:21 Approved by: Santiago Nolan M.D. on 10/16/2024 at 8:26 [facility] Narrative Medical decision making narrative: 84 years old female with history of chronic right hip pain came in today complaining of right lower lower abdominal pain, right hip pain worsening for the last 1 month after ran out her Ultram for the last 2 or 3 months ago. Her abdominal exam showed mild tenderness on palpation lower abdomen. Her CV exam, lung exam were normal. Her CBC showed no leukocytosis otherwise normal. Her CMP shows sodium 136 alkaline phosphatase 159 otherwise normal CMP. Her lipase was normal. She has had chronic Bernal catheter placement and deny any changes of the urine. Her CT scan abdomen and pelvis came back showing no acute finding. There was incidental finding of small right ovarian cyst. She denied any fever. I asked her to follow up with her primary care doctor for the right ovarian cyst. She was given Vicodin in the ED and was feeling better. She was sent home with 10 tablets of low-dose Vicodin. She was transferred back to the group home. Discharge Plan Departure Patient Disposition: Home Clinical Impression: Abdominal pain, Chronic pain of right hip Instructions: DI for Abdominal Pain-Adult, DI for Hip Pain Activity Restrictions/Additional Instructions: Small 2.6 x 3 cm right ovarian cyst. Please follow-up with your primary care doctor follow photo follow-up. Prescriptions: New hydrocodone-acetaminophen 2.5-325 mg tablet 1 tab PO TID PRN (Reason: pain) Qty: 10 0RF Referrals: Miscellaneous,Doctor, [Primary Care Provider, Medical] Stand Alone Forms: Patient Portal/API
[2024-10-16] MEDS: HYDROCODONE/ACET 5/325 TABLET 1 TAB PO (07:55)
--- NOTE | 2024-10-16 10:26 | PC.NURSE ---
Report called to FERNANDO Griffith at [place].
== END 2024-10-16 11:21 | disposition home or self-care (01) ==
PROVIDERS: Emergency Medicine; Emergency Provider Emergency Medicine
DX: R10.31 Right lower quadrant pain (principal); M25.551 Pain in right hip
CPT/HCPCS: 36415; 74177; 80053; 83690; 85025; 99284; Q9967

== ENCOUNTER → 2024-10-17 13:14 | Outpatient (ROUT) | payer MEDICARE, SELFPAY ==
[2024-10-17 13:24] LABS: Appearance Urine UA CLOUDY; Bilirubin Urine UA NEGATIVE (NEGATIVE); Color Urine UA YELLOW; Glucose Urine UA NEGATIVE (Negative); Ketones Urine UA 1+ (NEGATIVE); Leukocyte Esterase Urine UA 1+ (NEGATIVE); Nitrite Urine UA NEGATIVE (Negative); Occult Blood Urine UA 3+ (Negative); Protein Urine UA TRACE (Negative); Specific Gravity Urine UA 1.010 (1.000-1.035); Urobilinogen Urine UA 0.2 E.U./dL (0.2); pH Urine UA 6.5 (4.5-8.0)
[2024-10-17 13:26] LABS: Culture Indicated Urine Specimen Cultured
== END ==
PROVIDERS: Visit Provider Registered Nurse
DX: R52 Pain, unspecified (principal)
CPT/HCPCS: 81001; 87077; 87086; 87186

== ENCOUNTER → 2024-11-14 15:23 | Outpatient (ROUT) | payer MEDICARE, SELFPAY ==
[2024-11-14 15:38] LABS: Appearance Urine UA CLOUDY; Bilirubin Urine UA NEGATIVE (NEGATIVE); Color Urine UA YELLOW; Glucose Urine UA NEGATIVE (Negative); Ketones Urine UA NEGATIVE (NEGATIVE); Leukocyte Esterase Urine UA 3+ (NEGATIVE); Nitrite Urine UA POSITIVE (Negative); Occult Blood Urine UA 1+ (Negative); Protein Urine UA NEGATIVE (Negative); Specific Gravity Urine UA <=1.005 (1.000-1.035); Urobilinogen Urine UA 0.2 E.U./dL (0.2); pH Urine UA 6.5 (4.5-8.0)
[2024-11-14 15:47] LABS: Culture Indicated Urine Specimen Cultured
== END ==
PROVIDERS: Visit Provider Hospitalist
DX: J30.0 Vasomotor rhinitis (principal)
CPT/HCPCS: 81001; 87086

== ENCOUNTER → 2024-12-22 16:28 | Outpatient (ROUT) | payer MEDICARE, SELFPAY ==
[2024-12-11 23:25] VITALS: BMI 23.1
== END ==
PROVIDERS: Visit Provider Registered Nurse
DX: T30.0 Burn of unspecified body region, unspecified degree (principal)
CPT/HCPCS: 87070; 87075; 87077; 87186; 87205

== ENCOUNTER → 2024-12-29 16:53 | Outpatient (ROUT) | payer MEDICARE, SELFPAY ==
[2024-12-11 23:25] VITALS: BMI 23.1
[2024-12-29 17:01] LABS: Appearance Urine UA CLOUDY; Bilirubin Urine UA NEGATIVE (NEGATIVE); Color Urine UA YELLOW; Glucose Urine UA NEGATIVE (Negative); Ketones Urine UA NEGATIVE (NEGATIVE); Leukocyte Esterase Urine UA 2+ (NEGATIVE); Nitrite Urine UA NEGATIVE (Negative); Occult Blood Urine UA 3+ (Negative); Protein Urine UA 2+ (Negative); Specific Gravity Urine UA 1.025 (1.000-1.035); Urobilinogen Urine UA 0.2 E.U./dL (0.2)
[2024-12-29 17:06] LABS: pH Urine UA 6.0 (4.5-8.0)
[2024-12-29 17:11] LABS: Culture Indicated Urine Specimen Cultured
== END ==
PROVIDERS: Visit Provider Registered Nurse
DX: R41.0 Disorientation, unspecified (principal); R82.90 Unspecified abnormal findings in urine
CPT/HCPCS: 81001; 87077; 87086

== ENCOUNTER → 2025-01-18 07:37 | Outpatient (ROUT) | payer MEDICARE, SELFPAY ==
[2024-12-11 23:25] VITALS: BMI 23.1
[2025-01-18 07:48] LABS: Blood Urea Nitrogen 16 mg/dL (7-17); Calcium 8.7 mg/dL (8.4-10.2); Carbon Dioxide 26 mmol/L (22-32); Chloride 104 mmol/L (98-107); Estimated Glomerular Filt Rate > 60 mL/min (>60); Glucose 86 mg/dL (70-99); HEMOLYSIS 36 (0-50); Potassium 4.1 mmol/L (3.4-5.1); Sodium 137 mmol/L (137-145)
== END ==
PROVIDERS: Visit Provider Registered Nurse
DX: N39.0 Urinary tract infection, site not specified (principal)
CPT/HCPCS: 36415; 80048

== ENCOUNTER 2025-02-27 23:05 | Emergency (ER) | payer MEDICARE, SELFPAY ==
[2024-12-11 23:25] VITALS: BMI 23.1
[2025-02-27 23:11] VITALS: BP 157/90; PULSE 110; RESP 16; TEMP 36.9; O2SAT 93
[2025-02-27 23:15] VITALS: PULSE 110; O2SAT 95
--- NOTE | 2025-02-27 23:15 | ED.EXTPRO ---
HPI - Extremity Problem General Chief complaint: Extremity Injury, Lower Stated complaint: right foot pain 1 week Time Seen by Provider: 02/27/25 23:14 History of Present Illness HPI Narrative: 85-year-old female patient with a history of hypertension, dyslipidemia, dementia, GERD, chronic kidney disease and depression who is sent in from assisted living for right foot pain for 1 week with no known injury. No other complaint. Related Data Home Medications ?Medication ?Instructions ?Recorded ?Confirmed acetaminophen 325 mg tablet 650 mg PO TID PRN pain 12/12/24 12/12/24 atorvastatin 40 mg tablet (Lipitor) 40 mg PO BEDTIME 12/12/24 12/12/24 calcium carbonate (Tums) 400 mg PO QID PRN heartburn 12/12/24 12/12/24 cyclobenzaprine 5 mg tablet 5 mg PO 3XD PRN pain (scale score 12/12/24 12/12/24 4-6) docusate sodium 250 mg capsule 250 mg PO DAILY PRN constipation 12/12/24 12/12/24 duloxetine 60 mg capsule,delayed 60 mg PO DAILY 12/12/24 12/12/24 release hydrocodone 5 mg-acetaminophen 325 1 tab PO Q6H PRN pain (scale score 12/12/24 12/12/24 mg tablet 4-6) hydroxyzine HCl 25 mg tablet 25 mg PO Q6H PRN anxiety 12/12/24 12/12/24 ketoconazole 2 % topical cream 1 applic topical BID PRN rash 12/12/24 12/12/24 mirtazapine 7.5 mg tablet 7.5 mg PO ONCE PM 12/12/24 12/12/24 nystatin 100,000 unit/gram topical 1 applic topical BID PRN rash 12/12/24 12/12/24 cream ondansetron HCl 8 mg tablet 8 mg PO Q12H PRN nausea and 12/12/24 12/12/24 vomiting polyethylene glycol 3350 17 17 g PO DAILY 12/12/24 12/12/24 gram/dose oral powder (Miralax) quetiapine 25 mg tablet (Seroquel) 25 mg PO BEDTIME PRN agitation 12/12/24 12/12/24 sennosides 8.6 mg capsule (senna) 17.2 mg PO BID PRN constipation 12/12/24 12/12/24 vitamin B complex (Vitamins B 1 cap PO DAILY 12/12/24 12/12/24 Complex capsule) Previous Rx's ?Medication ?Instructions ?Recorded cefdinir 300 mg capsule 300 mg PO BID #14 caps 12/13/24 Allergies Allergy/AdvReac Type Severity Reaction Status Date / Time gabapentin Allergy Unknown Verified 02/27/25 23:12 hydrochlorothiazide Allergy Unknown Verified 02/27/25 23:12 indomethacin Allergy Unknown Verified 02/27/25 23:12 Penicillins Allergy Verified 02/27/25 23:12 Review of Systems Review of Systems ROS Unobtainable: All systems reviewed & are unremarkable except as noted in HPI and below Musculoskeletal Musculoskeletal: Reports as per HPI Patient History Social History household members: none alcohol intake frequency: other Exam Narrative Exam Narrative: General: Alert and conversant. No distress. Appears well nourished and well hydrated Lungs: Nonlabored respiration. Musculoskeletal: Exam of the right foot reveals inconsistent tenderness in various parts of the foot, with no specific bony tenderness or deformity. No swelling or discoloration. Otherwise, exam of the lower leg and knee are unremarkable with no tenderness or deformity. Sensation, motor and pulses intact Neuro: Alert Cranial nerves, motor, sensory and cerebellar all grossly intact. No focal deficit Skin: Warm and normal color. No rashes Psychological: Normal affect and interaction. No evidence of delusion or psychosis. Normal mood. Initial Vital Signs Initial Vital Signs: Vital Signs Temperature 98.4 F 02/27/25 23:11 Pulse Rate 110 H 02/27/25 23:11 Respiratory Rate 16 02/27/25 23:11 Blood Pressure 157/90 H 02/27/25 23:11 Pulse Oximetry 93 02/27/25 23:11 Oxygen Delivery Method Room Air 02/27/25 23:11 Course Orders Ordered: ED Orders 02/27/25 23:17 XR foot RT min 3V Stat Discontinued Medications Tramadol HCl (Tramadol 50 Mg Tablet) 50 mg PO NOW ONE Stop: 02/27/25 23:40 Last Admin: 02/27/25 23:47 Dose: 50 mg Documented By: VICTOR HUGO Vital Signs Vital signs: Vital Signs - 8 hr 02/27/25 23:11 02/27/25 23:15 02/27/25 23:30 Temperature 98.4 F Pulse Rate 110 H 110 H 110 H Respiratory Rate 16 Blood Pressure 157/90 H Pulse Oximetry 93 95 94 Oxygen Delivery Method Room Air 02/27/25 23:31 02/27/25 23:31 02/28/25 00:00 Temperature Pulse Rate 110 H 111 H Respiratory Rate Blood Pressure 164/93 H Pulse Oximetry 95 94 Oxygen Delivery Method 02/28/25 00:00 02/28/25 00:30 02/28/25 00:30 Temperature Pulse Rate 111 H Respiratory Rate Blood Pressure 154/82 H 153/80 H Pulse Oximetry 95 Oxygen Delivery Method 02/28/25 01:00 02/28/25 01:00 Temperature Pulse Rate 112 H Respiratory Rate Blood Pressure 157/90 H Pulse Oximetry 96 Oxygen Delivery Method MDM - Extremity (Nontraumatic) Imaging Data Extremity x-ray #1: Attestation: I personally reviewed and interpreted this imaging study as follows: (Right foot radiographs: Osteopenia with no fracture evident) [facility] Narrative Medical decision making narrative: Patient has right foot pain with unremarkable exam and radiographs. Possible sprain or tendinitis. Plan is follow up with her provider. [id number] pain medicine. She also has a prescription for hydrocodone for her ongoing chronic pain. In addition she has mild tachycardia which I do not believe needs workup in the ER today. Plan is for hydration and monitor vital signs. Instructed to follow up with her provider for both her foot and for her tachycardia. Return to the ER if worse. Discharge Plan Departure Patient Disposition: Home Clinical Impression: Acute pain of right foot Instructions: DI for Tachycardia, DI for Foot Pain Activity Restrictions/Additional Instructions: Assessment: Right foot pain with negative radiographs and no fracture evident. Probable soft tissue pain. Mild sinus tachycardia possibly from pain Plan: Continue current pain medications and follow up either with primary care or Podiatry regarding foot pain. If tachycardia persists will need further workup. Prescriptions: No Action hydrocodone-acetaminophen 5-325 mg tablet 1 tab PO Q6H PRN (Reason: pain (scale score 4-6)) acetaminophen 325 mg tablet 650 mg PO TID PRN (Reason: pain) cyclobenzaprine 5 mg tablet 5 mg PO 3XD PRN (Reason: pain (scale score 4-6)) hydroxyzine HCl 25 mg tablet 25 mg PO Q6H PRN (Reason: anxiety) vitamin B complex [Vitamins B Complex] Capsule 1 cap PO DAILY polyethylene glycol 3350 [Miralax] 17 gram/dose powder 17 g PO DAILY duloxetine 60 mg capsule,delayed release(DR/EC) 60 mg PO DAILY quetiapine [Seroquel] 25 mg tablet 25 mg PO BEDTIME PRN (Reason: agitation) mirtazapine 7.5 mg tablet 7.5 mg PO ONCE PM atorvastatin [Lipitor] 40 mg tablet 40 mg PO BEDTIME nystatin 100,000 unit/gram cream 1 applic topical BID PRN (Reason: rash) Rx Instructions: to groin calcium carbonate [Tums] 200 mg calcium (500 mg) tablet,chewable 400 mg PO QID PRN (Reason: heartburn) ondansetron HCl 8 mg tablet 8 mg PO Q12H PRN (Reason: nausea and vomiting) ketoconazole 2 % cream 1 applic topical BID PRN (Reason: rash) senna 8.6 mg capsule 17.2 mg PO BID PRN (Reason: constipation) docusate sodium 250 mg capsule 250 mg PO DAILY PRN (Reason: constipation) cefdinir 300 mg capsule 300 mg PO BID Qty: 14 0RF Stand Alone Forms: Patient Portal/API
--- NOTE | 2025-02-27 23:17 | DI.RAD.S_ITS ---
PROCEDURE: XR FOOT RT MIN 3V INDICATIONS: pain TECHNIQUE: 3 views of the foot were acquired. COMPARISON: None. FINDINGS: Bones: Marked osteopenia. No fractures or dislocations. No suspicious bony lesions. Soft tissues: No tibiotalar joint effusion. Achilles tendon appears normal. IMPRESSION: Osteopenia. No acute bony abnormality. Approved by: Cornelia Kaiser M.D.,Ph.D. on 02/28/2025 at 0:47
[2025-02-27 23:30] VITALS: PULSE 110; O2SAT 94
[2025-02-27 23:31] VITALS: BP 164/93; PULSE 110; O2SAT 95
--- NOTE | 2025-02-27 23:43 | PC.NURSE ---
c/o right foot pain without any injury, no obvious injury or deformity noted
[2025-02-28] VITALS: BP 154/82; PULSE 111; O2SAT 94
[2025-02-28 00:30] VITALS: BP 153/80; PULSE 111; O2SAT 95
--- NOTE | 2025-02-28 00:58 | PC.NURSE ---
believes she is at a wedding she is not supposed to be in.
[2025-02-28 01:00] VITALS: BP 157/90; PULSE 112; O2SAT 96
--- NOTE | 2025-02-28 01:36 | PC.NURSE ---
attempted to call [facility] with no answer
== END 2025-02-28 01:43 | disposition home or self-care (01) ==
PROVIDERS: Emergency Provider Emergency Medicine
DX: M79.671 Pain in right foot (principal)
CPT/HCPCS: 73630; 99283

== ENCOUNTER 2025-03-13 18:17 | Emergency (ER) | payer MEDICARE, SELFPAY ==
[2024-12-11 23:25] VITALS: BMI 23.1
[2025-03-13] VITALS (8 sets, daily range): BP systolic 94–131; BP diastolic 57–73; PULSE 99–110; RESP 16–23; TEMP 36.6; O2SAT 94–95; BMI 25.6
--- NOTE | 2025-03-13 18:25 | ED.GENADULT ---
HPI - General Adult General Chief complaint: Extremity Problem,Nontraumatic Stated complaint: Body Aches Time Seen by Provider: 03/13/25 18:22 Source: patient, EMS, RN notes reviewed and old records reviewed Mode of arrival: EMS Limitations: no limitations History of Present Illness HPI narrative: 75-year-old female history of hypertension, dyslipidemia, dementia, GERD, CKD, depression sent from [facility]. Patient was recently at [facility] was transferred to [facility] it sounds like for dementia. Patient does require a lift assist. Medics state that she was transferred there several hours ago has been agitated which sounds like intermittent and somewhat typical for the patient. Was initially frustrated about her room, then was refusing to go in the room and refusing to take medications. Patient here is conversant but medics states she is quite agitated prior to arrival. She notes that she has had some pain medication earlier this morning. She states she has chronic leg pain. Patient notes she takes medication she does not know what it is, she can tell me her name, she knows where she is she does not know the year. She denies any chest pain or shortness of breath, denies headache, denies nausea or vomiting denies any other GI or urinary symptoms. Has not indwelling Bernal catheter with yellow urine present. Related Data Home Medications ?Medication ?Instructions ?Recorded ?Confirmed acetaminophen 325 mg tablet 650 mg PO TID PRN pain 12/12/24 12/12/24 atorvastatin 40 mg tablet (Lipitor) 40 mg PO BEDTIME 12/12/24 12/12/24 calcium carbonate (Tums) 400 mg PO QID PRN heartburn 12/12/24 12/12/24 cyclobenzaprine 5 mg tablet 5 mg PO 3XD PRN pain (scale score 12/12/24 12/12/24 4-6) docusate sodium 250 mg capsule 250 mg PO DAILY PRN constipation 12/12/24 12/12/24 duloxetine 60 mg capsule,delayed 60 mg PO DAILY 12/12/24 12/12/24 release hydrocodone 5 mg-acetaminophen 325 1 tab PO Q6H PRN pain (scale score 12/12/24 12/12/24 mg tablet 4-6) hydroxyzine HCl 25 mg tablet 25 mg PO Q6H PRN anxiety 12/12/24 12/12/24 ketoconazole 2 % topical cream 1 applic topical BID PRN rash 12/12/24 12/12/24 mirtazapine 7.5 mg tablet 7.5 mg PO ONCE PM 12/12/24 12/12/24 nystatin 100,000 unit/gram topical 1 applic topical BID PRN rash 12/12/24 12/12/24 cream ondansetron HCl 8 mg tablet 8 mg PO Q12H PRN nausea and 12/12/24 12/12/24 vomiting polyethylene glycol 3350 17 17 g PO DAILY 12/12/24 12/12/24 gram/dose oral powder (Miralax) quetiapine 25 mg tablet (Seroquel) 25 mg PO BEDTIME PRN agitation 12/12/24 12/12/24 sennosides 8.6 mg capsule (senna) 17.2 mg PO BID PRN constipation 12/12/24 12/12/24 vitamin B complex (Vitamins B 1 cap PO DAILY 12/12/24 12/12/24 Complex capsule) Previous Rx's ?Medication ?Instructions ?Recorded cefdinir 300 mg capsule 300 mg PO BID #14 caps 12/13/24 nitrofurantoin 100 mg PO BID #14 caps 03/13/25 monohydrate/macrocrystals 100 mg capsule (Macrobid) Allergies Allergy/AdvReac Type Severity Reaction Status Date / Time gabapentin Allergy Unknown Verified 03/13/25 18:38 hydrochlorothiazide Allergy Unknown Verified 03/13/25 18:38 indomethacin Allergy Unknown Verified 03/13/25 18:38 Penicillins Allergy Verified 03/13/25 18:38 Review of Systems Review of Systems ROS Unobtainable: All systems reviewed & are unremarkable except as noted in HPI and below Patient History Social History household members: none alcohol intake frequency: other Exam Narrative Exam Narrative: GENERAL: Alert and oriented x 2, alert, conversant, mild distress HEENT: Head normocephalic, atraumatic, EOMI, pupils reactive, face symmetric, moist mucous membranes NECK: Supple, full range of motion CARDIOVASCULAR: Regular rate and rhythm without murmurs, rubs or gallops. RESPIRATORY: Breath sounds equal bilaterally, no wheezes rales or rhonchi. ABDOMEN: Soft, nontender. Normoactive bowel sounds all 4 quadrants. No guarding or rebound, rigidity, no mass : No CVA tenderness, patient has Bernal catheter in place draining yellow translucent urine. EXTREMITIES: Normal range of motion. Neurovascularly intact NEUROLOGICAL: Cranial nerves II through XII grossly intact. Moving all extremities SKIN: Warm, dry, no petechiae, no rashes or lesions. Initial Vital Signs Initial Vital Signs: Vital Signs Pulse Rate 110 H 03/13/25 18:33 Blood Pressure 131/72 03/13/25 18:33 Pulse Oximetry 95 03/13/25 18:33 Course Orders Ordered: ED Orders 03/13/25 19:00 CBC Auto Diff [Complete Blood Count AUTO DIFF] Stat CMP [Comprehensive Metabolic Panel] Stat UA Complete [Urinalysis and Microscopic] Stat Urine Culture Stat Discontinued Medications Hydrocodone Bitart/Acetaminophen (Hydrocodone/Acet 5/325 Tablet) 1 tab PO NOW ONE Stop: 03/13/25 18:23 Last Admin: 03/13/25 18:49 Dose: 1 tab Documented By: NEETU Nitrofurantoin Macrocrystals (Nitrofurantoin Er 100 Mg Capsule) 100 mg PO NOW ONE Stop: 03/13/25 20:40 Last Admin: 03/13/25 21:09 Dose: 100 mg Documented By: EDSON Quetiapine Fumarate (Quetiapine 25 Mg Tablet) 25 mg PO NOW ONE Stop: 03/13/25 18:23 Last Admin: 03/13/25 18:58 Dose: 25 mg Documented By: NEETU Vital Signs Vital signs: Vital Signs - 8 hr 03/13/25 18:33 03/13/25 18:33 03/13/25 18:38 Temperature 98 F Pulse Rate 110 H 107 H Respiratory Rate 16 Blood Pressure 131/72 131/72 Pulse Oximetry 95 95 Oxygen Delivery Method Room Air 03/13/25 19:00 03/13/25 19:00 03/13/25 19:30 Temperature Pulse Rate 104 H 105 H Respiratory Rate 21 21 Blood Pressure 119/64 Pulse Oximetry 94 94 Oxygen Delivery Method 03/13/25 19:30 03/13/25 20:00 03/13/25 20:00 Temperature Pulse Rate 109 H Respiratory Rate 22 Blood Pressure 112/57 L 110/73 Pulse Oximetry 95 Oxygen Delivery Method 03/13/25 20:30 03/13/25 20:30 03/13/25 21:00 Temperature Pulse Rate 102 H Respiratory Rate 20 Blood Pressure 96/57 L 94/63 Pulse Oximetry 95 Oxygen Delivery Method 03/13/25 21:00 03/13/25 21:12 03/13/25 21:12 Temperature Pulse Rate 99 H 99 H Respiratory Rate 23 20 Blood Pressure 109/58 L Pulse Oximetry 94 94 Oxygen Delivery Method Medical Decision Making Lab Data 03/13/25 19:00 03/13/25 19:00 Labs: Lab Results 03/13/25 Range/Units 19:00 WBC 12.2 H (4.5-11.0) X10^3/uL RBC 4.32 (4.0-5.2) X10^6/uL Hgb 12.3 (12.0-16.0) g/dL Hct 37.3 (36-46) % MCV 86.3 (80-100) fL MCH 28.5 (26-34) PG MCHC 33.0 (30-36) % RDW 14.7 (11.6-14.8) % Plt Count 340 (150-400) X10^3/uL Neut % (Auto) 72.8 (50-75) % Lymph % (Auto) 18.7 L (25-40) % [place] % (Auto) 5.6 (3-14) % Eos % (Auto) 2.1 (2-4) % Baso % (Auto) 0.8 (0-2) % Neut # (Auto) 8900 H (2384-9839) /uL Lymph # (Auto) 2300 (6613-2125) /uL [place] # (Auto) 700 (0-900) /uL Eos # (Auto) 300 (0-450) /uL Baso # (Auto) 100 (0-100) /uL Sodium 140 (137-145) mmol/L Potassium 3.9 (3.4-5.1) mmol/L Chloride 107 (98-107) mmol/L Carbon Dioxide 25 (22-32) mmol/L BUN 19 H (7-17) mg/dL Creatinine 0.83 (0.52-1.04) mg/dL Estimated GFR > 60 (>60) mL/min BUN/Creatinine Ratio 22.9 H (6-22) Glucose 141 H (70-99) mg/dL Calcium 8.7 (8.4-10.2) mg/dL Total Bilirubin 0.4 (0.2-1.3) mg/dL AST 25 (14-36) IU/L ALT 12 (<35) IU/L Alkaline Phosphatase 144 H (38-126) U/L Total Protein 7.3 (6.3-8.2) g/dL Albumin 3.7 (3.5-5.0) g/dL Globulin 3.6 (1.7-4.1) g/dL Albumin/Globulin Ratio 1.0 (1.0-2.8) Urine Color Yellow Urine Appearance Clear Urine pH 8.5 H (4.5-8.0) Ur Specific Center 1.020 (1.000-1.035) Urine Protein 3+ H (Negative) Urine Glucose (UA) Negative (Negative) g/dL Urine Ketones Negative (NEGATIVE) Urine Occult Blood 2+ H (Negative) Urine Nitrate Negative (Negative) Urine Bilirubin Negative (NEGATIVE) Urine Urobilinogen 1.0 (0.2) E.U./dL Ur Leukocyte Esterase 1+ H (NEGATIVE) Urine RBC 10-30/hpf H (0-5/HPF) Urine WBC 10-30/hpf H (0-5/HPF) Ur Squamous Epith Cells None seen (0-5/HPF) Ur Transition Epith Cell None seen (0-5/HPF) Urine Bacteria Many (>30) H (None) Ur Culture Indicated? Specimen cultured Vol Urine Centrifuged 10ml (spun) MDM Narrative Medical decision making narrative: labs show white count of 12.2 hemoglobin 12.3 platelets of 340, electrolytes are appropriate BUN 19 creatinine 0.83 and glucose is 141 alk-phos is 144 otherwise normal LFTs urine shows 3+ protein, 2+ blood 1+ leuks, 10-30 RBCs 10-30 WBCs many bacteria was sent for culture patient had home medications. Patient recently transferred to new facility was agitated with staff patient noted some chronic lower extremity pain she does normally take pain medication for this and was given her home dose. Urinalysis shows possible infection we will start oral antibiotic and return to patient's facility. Discharge Plan Departure Patient Disposition: Home Clinical Impression: UTI (urinary tract infection) Activity Restrictions/Additional Instructions: Your workup today shows a potential bladder infection. A prescription was sent to the pharmacy. You received your 1st dose of antibiotic here tonight. You also received a dose of your home pain medication as well as you are Seroquel. Prescription sent to [facility] pharmacy. Please return for new or concerning changes. Prescriptions: New nitrofurantoin monohyd/m-cryst [Macrobid] 100 mg capsule 100 mg PO BID Qty: 14 0RF Rx Instructions: must administer with a meal/food No Action hydrocodone-acetaminophen 5-325 mg tablet 1 tab PO Q6H PRN (Reason: pain (scale score 4-6)) acetaminophen 325 mg tablet 650 mg PO TID PRN (Reason: pain) cyclobenzaprine 5 mg tablet 5 mg PO 3XD PRN (Reason: pain (scale score 4-6)) hydroxyzine HCl 25 mg tablet 25 mg PO Q6H PRN (Reason: anxiety) vitamin B complex [Vitamins B Complex] Capsule 1 cap PO DAILY polyethylene glycol 3350 [Miralax] 17 gram/dose powder 17 g PO DAILY duloxetine 60 mg capsule,delayed release(DR/EC) 60 mg PO DAILY quetiapine [Seroquel] 25 mg tablet 25 mg PO BEDTIME PRN (Reason: agitation) mirtazapine 7.5 mg tablet 7.5 mg PO ONCE PM atorvastatin [Lipitor] 40 mg tablet 40 mg PO BEDTIME nystatin 100,000 unit/gram cream 1 applic topical BID PRN (Reason: rash) Rx Instructions: to groin calcium carbonate [Tums] 200 mg calcium (500 mg) tablet,chewable 400 mg PO QID PRN (Reason: heartburn) ondansetron HCl 8 mg tablet 8 mg PO Q12H PRN (Reason: nausea and vomiting) ketoconazole 2 % cream 1 applic topical BID PRN (Reason: rash) senna 8.6 mg capsule 17.2 mg PO BID PRN (Reason: constipation) docusate sodium 250 mg capsule 250 mg PO DAILY PRN (Reason: constipation) cefdinir 300 mg capsule 300 mg PO BID Qty: 14 0RF Stand Alone Forms: Patient Portal/API
[2025-03-13 19:06] LABS: Add Manual Diff / Slide Review NO; Hematocrit 37.3 % (36-46); Hemoglobin 12.3 g/dL (12.0-16.0); Lymphocytes Absolute Auto 2300 /uL (1100-4500); Mean Corpuscular HGB Conc 33.0 % (30-36); Mean Corpuscular Hemoglobin 28.5 PG (26-34); Mean Corpuscular Volume 86.3 fL (80-100); Platelet Count 340 X10^3/uL (150-400)
[2025-03-13 19:21] LABS: Alanine Aminotransferase 12 IU/L (<35); Albumin 3.7 g/dL (3.5-5.0); Albumin Globulin Ratio 1.0 (1.0-2.8); Alkaline Phosphatase 144 U/L (38-126); Blood Urea Nitrogen 19 mg/dL (7-17); Calcium 8.7 mg/dL (8.4-10.2); Carbon Dioxide 25 mmol/L (22-32); Chloride 107 mmol/L (98-107); Estimated Glomerular Filt Rate > 60 mL/min (>60); Globulin 3.6 g/dL (1.7-4.1); Glucose 141 mg/dL (70-99); HEMOLYSIS < 15 (0-50); Potassium 3.9 mmol/L (3.4-5.1); Sodium 140 mmol/L (137-145); Total Protein 7.3 g/dL (6.3-8.2)
[2025-03-13 19:23] LABS: Appearance Urine UA CLEAR; Bilirubin Urine UA NEGATIVE (NEGATIVE); Color Urine UA YELLOW; Glucose Urine UA NEGATIVE (Negative); Ketones Urine UA NEGATIVE (NEGATIVE); Leukocyte Esterase Urine UA 1+ (NEGATIVE); Nitrite Urine UA NEGATIVE (Negative); Occult Blood Urine UA 2+ (Negative); Protein Urine UA 3+ (Negative); Specific Gravity Urine UA 1.020 (1.000-1.035); Urobilinogen Urine UA 1.0 E.U./dL (0.2); pH Urine UA 8.5 (4.5-8.0)
[2025-03-13 20:05] LABS: Culture Indicated Urine Specimen Cultured
[2025-03-13] MEDS: NITROFURANTOIN ER 100 MG CAPSULE PO (21:09)
== END 2025-03-13 21:34 | disposition home or self-care (01) ==
PROVIDERS: Emergency Provider Emergency Medicine
DX: N39.0 Urinary tract infection, site not specified (principal)
CPT/HCPCS: 36415; 80053; 81001; 85025; 87077; 87086; 87186; 99283